=== PATIENT | male | born 1985 | race African-American/Black ===

== ENCOUNTER 2017-03-29 17:54 | Emergency (ER) | payer MEDICAID, OTHER ==
[~2017-03-29] VITALS: Ht 208.3 cm; Wt 98.0 kg
[2017-03-29 21:09] VITALS: BP 114/64
== END 2017-03-29 22:54 | disposition home or self-care (01) ==
LOC: ER 20:40
DX: T59.3X3A Toxic effect of lacrimogenic gas, assault, initial encounter (principal); H57.8 Other specified disorders of eye and adnexa; M25.511 Pain in right shoulder; Y93.89 Activity, other specified; Y92.89 Other specified places as the place of occurrence of the external cause
CPT/HCPCS: 99283; Z7610

== ENCOUNTER 2017-03-30 00:07 | Emergency (ER) | payer MEDICAID ==
[~2017-03-30] VITALS: Ht 205.7 cm; Wt 95.0 kg
[2017-03-30 05:34] VITALS: BP 130/69
== END 2017-03-30 07:04 | disposition home or self-care (01) ==
LOC: ER 00:07
DX: H57.12 Ocular pain, left eye (principal); M25.511 Pain in right shoulder; Z98.890 Other specified postprocedural states
CPT/HCPCS: 99283